=== PATIENT | male | born 1980 | race African-American/Black ===

== ENCOUNTER 2019-08-29 14:58 | Emergency (ER) | payer MEDICAID ==
[~2019-08-29] VITALS: Ht 175.3 cm; Wt 87.1 kg
[2019-08-29 15:29] VITALS: BP 142/91
[2019-08-29] MEDS ORDERED: Ketorolac 30mg Inj IM ONE (15:45)
[2019-08-29] MEDS ORDERED: Methocarbamol 750mg tab ORAL ONE (15:45)
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
[2019-08-29] MEDS ORDERED: IBUPROFEN600 M1 ORAL (17:15)
[2019-08-29] MEDS ORDERED: ROBAXIN-500MG ORAL (17:15)
[2019-08-29] MEDS ORDERED: LIDODERM700 M1 TOPIC (17:15)
[2019-08-29 17:24] VITALS: BP 140/87
== END 2019-08-29 17:27 | disposition home or self-care (01) ==
LOC: EMR 15:20
DX: S39.012A Strain of muscle, fascia and tendon of lower back, initial encounter (principal); S40.012A Contusion of left shoulder, initial encounter; V43.52XA Car driver injured in collision with other type car in traffic accident, initial encounter; Y92.9 Unspecified place or not applicable; M48.07 Spinal stenosis, lumbosacral region
CPT/HCPCS: 72131; 73030; 96372; J1885; Z7502; 99284

== ENCOUNTER 2020-05-08 19:40 | Emergency (ER) | payer MEDICAID ==
[~2020-05-08] VITALS: Ht 175.3 cm; Wt 93.4 kg
[~2020-05-08 19:40] MED LIST: IBUPROFEN600 M1 ORAL; LIDODERM700 M1 TOPIC; ROBAXIN-500MG ORAL
[2020-05-08 20:11] VITALS: BP 151/95
--- NOTE | 2020-05-08 20:28 | NUR ---
Pt reports pain transversely in the midback below the bilateral scapula. Pt also reports Hx of asthma.
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
[2020-05-08] MEDS ORDERED: Methocarbamol 500mg tab ORAL ONE (20:45)
[2020-05-08] MEDS ORDERED: Ketorolac 60mg Inj IM ONE (20:45)
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
--- NOTE | 2020-05-08 22:22 | Diagnostic Imaging Report ---
EXAM: CT Thoracic Spine Without Intravenous Contrast CLINICAL HISTORY: Trauma TECHNIQUE: Axial computed tomography images of the thoracic spine without intravenous contrast. CTDI is 12.8 mGy and DLP is 618.4 mGy-cm. One or more of the following dose reduction techniques were used: automated exposure control, adjustment of the mA and/or kV according to patient size, use of iterative reconstruction technique. COMPARISON: No relevant prior studies available. FINDINGS: Vertebrae: Unremarkable. No acute fracture. Discs/spinal canal/neural foramina: No acute findings. No spinal canal stenosis. Soft tissues: Unremarkable. Mediastinum: A small amount of soft tissue density the anterior mediastinum may represent residual thymus tissue. IMPRESSION: 1. No intrathoracic injury. No fracture. 2. A small amount of soft tissue density the anterior mediastinum may represent residual thymus tissue.
[2020-05-08] MEDS ORDERED: ROBAXIN-750750 MG PO (22:24)
[2020-05-08] MEDS ORDERED: IBUPROFEN600 M1 ORAL (22:24)
== END 2020-05-08 22:33 | disposition home or self-care (01) ==
LOC: EMR 21:12
DX: M54.6 Pain in thoracic spine (principal); V43.52XA Car driver injured in collision with other type car in traffic accident, initial encounter; Y92.410 Unspecified street and highway as the place of occurrence of the external cause
CPT/HCPCS: 71250; 72128; 96372; Z7502; 99284